=== PATIENT | female | born 1950 | race Caucasian/White ===

== ENCOUNTER → 2016-07-06 | Outpatient (CLI) | payer OTHER ==
--- NOTE | 2016-07-06 16:18 | KCIC ---
PROCEDURE MR of the left shoulder HISTORY Left shoulder pain. Previous surgery 2012. TECHNIQUE Standard multiplanar sequences are obtained. COMPARISON None FINDINGS Moderate motion degradation, despite repeated attempts at scanning. The acromial process is thinned and irregular which may be due to prior acromioplasty. Mild signal or marrow edema is identified at the acromial process and at the outer clavicle. There is also some mild soft tissue edema along the acromion and acromioclavicular joint. No obvious separation. There appears to be a small joint effusion. Surgical screws identified at the humeral head compatible with prior rotator cuff repair. The rotator cuff tendon is diffusely thinned but there is no evidence of a fluid gap to indicate a full-thickness rupture or retraction. Trace subdeltoid bursal fluid. Mild supraspinatus and severe infraspinatus muscle atrophy with fatty replacement. Small glenohumeral joint effusion. Severe glenohumeral joint primary osteoarthritis. The biceps tendon is poorly seen but that may be due to the motion degradation in part. No evidence of bone lesion or acute fracture. No acute soft tissue injury. There is mild reactive type edema at the humeral head surrounding the surgical screws. There is evidence of a degenerative tear of the superior labrum, and probably the posterior labrum. IMPRESSION 1. Moderate motion degradation. 2. Diffuse thinning of the rotator cuff tendon attachments, but no evidence of recurrent full thickness rupture or retraction. 3. Small acromioclavicular joint effusion with marrow and soft tissue edema. Etiology nonspecific. This could be related to trauma or stress injury. Inflammatory process possible. Consider infection if there is clinical correlation. 4. Poorly visualized biceps tendon, suspicious for some tearing, but the motion degradation could contribute to the appearance. 5. Severe glenohumeral joint primary osteoarthritis. 6. Labrum tear, particularly at the superior aspect. Electronically signed by: Jose Donato MD (Jul 06, 2016 16:17:13)
== END | disposition home or self-care (01) ==
LOC: KCIC MRI 14:23
PROVIDERS: ATTEND Family Medicine
DX: M25.512 Pain in left shoulder (principal); M17.12 Unilateral primary osteoarthritis, left knee
CPT/HCPCS: 73221